=== PATIENT | male | born 1950 | race Caucasian/White ===

== ENCOUNTER → 2025-11-12 11:42 | Outpatient (CLI) | payer MEDICARE, OTHER, SELFPAY ==
--- NOTE | 2025-11-12 11:46 | DI.MRI.S_ITS ---
PROCEDURE: MR LUMBAR SPINE WO CON INDICATIONS: lumbar spondylosis TECHNIQUE: Noncontrast sagittal T1 spin echo and T2 fast echo, sagittal STIR, and T2 fast spin echo through the lumbar spine. In cases with scoliosis, additional coronal T2 fast spin echo may be performed. COMPARISON: [facility], CR, XR LUMBAR SPINE FLEXION EXTENSION, 10/24/2025, 7:53. Outside Film, CT, CT LUMBAR SPINE WITHOUT CONTRAST, 08/13/2025, 8:08. FINDINGS: Image quality: Excellent. Alignment and Curvature: There is [id number] levoscoliosis of lumbar spine with apex at L3 level. Straightening of normal lumbar lordosis is also seen. Bone Marrow: There is no gross marrow edema. No acute vertebral body compression fractures. Spinal Cord: Conus medullaris terminates at the L1 level. Visualized cord demonstrates normal signal and size. Paraspinous Soft Tissues: No paravertebral masses. T12-L1: Disc desiccation and loss of disc height.. Left lateral disc bulge and bilateral facet arthrosis is seen with mild left-sided neural foraminal narrowing. No significant central canal stenosis. L1-L2: There is disc desiccation and loss of disc height. Left lateral disc herniation and bilateral facet arthrosis is seen. Mild central canal stenosis and moderate left-sided neural foraminal narrowing is seen. Bulging disc likely contacting left L1 nerve root. L2-L3: There is disc desiccation and loss of disc height. Diffuse disc bulge and central to right-sided disc herniation is seen causing moderate central canal stenosis, moderate to severe bilateral neural foraminal narrowing worse on the right side. Bulging disc likely contacting bilateral L2 nerve roots. L3-L4: Loss of disc height and disc desiccation. Broad-based disc bulge and central to right-sided disc herniation is seen causing moderate central canal stenosis, [id number] left-sided neural foraminal narrowing and moderate to severe right-sided neural foraminal. Bulging disc likely contacting bilateral L3 nerve roots. L4-L5: Loss of disc height and disc desiccation. Diffuse disc bulge and central to right-sided disc herniation and extrusion causing severe narrowing of left neural recess and left neural foramen and moderate right-sided neural foraminal narrowing. [id number] central canal stenosis is also seen. Bulging disc likely contacting left L4 and L5 nerve roots. L5-S1: Loss of disc height and disc desiccation. Broad-based disc bulge and bilateral facet arthrosis with [id number] bilateral neural foraminal narrowing. Bulging disc likely contacting bilateral L5 nerve roots. No significant central canal stenosis. IMPRESSION: 1. Scoliosis as above. No marrow edema. No acute vertebral body compression fracture. 2. 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 3. No gross paraspinous soft tissue abnormalities. Dictated by: Scottie Pelletier M.D. on 11/12/2025 at 13:25 Approved by: Scottie Pelletier M.D. on 11/12/2025 at 13:32
== END ==
LOC: MRI 11:45
PROVIDERS: Referring Provider Physician Assistant Surgical; Visit Provider Physician Assistant Surgical
DX: M47.816 Spondylosis without myelopathy or radiculopathy, lumbar region (principal); M51.369 Other intervertebral disc degeneration, lumbar region without mention of lumbar back pain or lower extremity pain; M51.379 Other intervertebral disc degeneration, lumbosacral region without mention of lumbar back pain or lower extremity pain; M41.9 Scoliosis, unspecified; M48.061 Spinal stenosis, lumbar region without neurogenic claudication; M48.07 Spinal stenosis, lumbosacral region
CPT/HCPCS: 72148